=== PATIENT | female | born 2005 | race Caucasian/White ===

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

== ENCOUNTER → 2023-02-22 | Outpatient (REF) | payer OTHER ==
[~2023-02-22] MED LIST: NITR1CAP11 PO
== END ==
LOC: M LAB REF 19:31
PROVIDERS: ATTEND Student in an Organized Health Care Education/Training Program
DX: R30.0 Dysuria (principal)

== ENCOUNTER 2023-02-26 20:37 | Emergency (ER) | payer OTHER ==
[~2023-02-26] VITALS: Ht 162.6 cm; Wt 71.8 kg
[2023-02-26 20:38] VITALS: BP 143/86; TEMP 96.8; O2SAT 98
[2023-02-26 22:20] LABS: APPEARANCE, URINE CLOUDY (CLEAR); BACTERIA, URINE AUTO 1+ (NEGATIVE); BILIRUBIN, URINE AUTO NEGATIVE (NEGATIVE); BLOOD, URINE BLOOD 3+ (NEGATIVE); COLOR, URINE YELLOW (YELLOW); GLUCOSE, URINE (UA) AUTO NEGATIVE (NEGATIVE); KETONE, URINE AUTO NEGATIVE (NEGATIVE); LEUKOCYTE ESTERASE, URINE AUTO 3+ (NEGATIVE); MUCUS, URINE SMALL (NEGATIVE); NITRITE, URINE AUTO NEGATIVE (NEGATIVE); PROTEIN, URINE AUTO 2+ mg/dL (NEGATIVE); RBC, URINE AUTO TNTC /HPF (0-3); SPECIFIC GRAVITY URINE AUTO 1.027 (1.002-1.035); SQUAMOUS EPITHELIAL CELL UR AU 46 /HPF (0-6); UROBILINOGEN, URINE AUTO 0.2 mg/dL (0.0-2.0); WBC, URINE AUTO TNTC /HPF (0-3)
== END 2023-02-26 23:45 | disposition left against medical advice (07) ==
LOC: M ED 20:37
DX: Z53.21 Procedure and treatment not carried out due to patient leaving prior to being seen by health care provider (principal)

== ENCOUNTER 2023-03-22 05:55 | Emergency (ER) | payer OTHER ==
[~2023-03-22] VITALS: Ht 160 cm; Wt 70.2 kg
[~2023-03-22 05:55] MED LIST changes: +METR-265 PO
[2023-03-22 05:56] VITALS: BP 126/82; TEMP 97.6; O2SAT 97
[2023-03-22] MEDS ORDERED: CIPROFLOXACIN 0.3% OPHTH SOLN 2.5ML OU ONE (07:55)
[2023-03-22] MEDS ORDERED: AMOX500C PO (07:56)
[2023-03-22] MEDS ORDERED: CIPR0.3S37 OU (07:56)
== END 2023-03-22 08:05 | disposition home or self-care (01) ==
LOC: M ED 05:55
DX: J20.9 Acute bronchitis, unspecified (principal); H10.9 Unspecified conjunctivitis; Z79.899 Other long term (current) drug therapy

== ENCOUNTER → 2023-10-03 | Outpatient (REF) ==
[~2023-10-03] MED LIST changes: +AMOX500C PO; +CIPR0.3S37 OU; +NITR100C3 PO; -NITR1CAP11 PO
== END ==
LOC: M EMP 09:19
PROVIDERS: ATTEND Family Medicine
DX: Z53.9 Procedure and treatment not carried out, unspecified reason (principal)

== ENCOUNTER 2024-05-07 15:58 | Emergency (ER) | payer MEDICAID, OTHER ==
[~2024-05-07] VITALS: Ht 162.6 cm; Wt 84.8 kg
[2024-05-07 16:04] VITALS: BP 157/91; TEMP 98.9; O2SAT 95
[2024-05-07 16:33] LABS: KETONE, URINE MANUAL REFLEX 1+ mg/dL (NEGATIVE); NITRITE, URINE MANUAL RFX NEGATIVE (NEGATIVE); PROTEIN, URINE MANUAL REFLEX 2+ mg/dL (NEGATIVE); UROBILINOGEN, UA MANUAL REFLEX NORMAL (NORMAL)
[2024-05-07 16:57] LABS: SQUAMOUS EPITHELIAL URINE RFX MOD AMOUNT /hpf (SMALL AMT)
[2024-05-07 16:58] LABS: HYALINE CAST, URINE RFX NONE SEEN /lpf (0-1); MICROSCOPIC EXAM RFX PERFORMED; MUCUS, URINE REFLEX MOD AMOUNT (NEGATIVE)
[2024-05-07 19:51] LABS: Trichomonas vaginalis (AMP) NOT DETECTED (NEGATIVE)
[2024-05-07 20:14] LABS: GC DNA AMPLIFICATION NEGATIVE (NEGATIVE)
[2024-05-07] MEDS ORDERED: BACT800T5 PO (20:49)
[2024-05-07] MEDS: BACTRIM 160MG/800MG DS TAB PO ONE (20:55)
== END 2024-05-07 21:03 | disposition home or self-care (01) ==
LOC: M ED 15:58
DX: N39.0 Urinary tract infection, site not specified (principal); R30.0 Dysuria; Z79.2 Long term (current) use of antibiotics; Z79.899 Other long term (current) drug therapy

== ENCOUNTER → 2024-10-23 | Outpatient (REF) ==
[~2024-10-23] MED LIST changes: +BACT800T5 PO
== END ==
LOC: M EMP 13:14
PROVIDERS: ATTEND Family Medicine
DX: Z11.52 Encounter for screening for COVID-19 (principal)